=== PATIENT | male | born 1985 | race African-American/Black ===

== ENCOUNTER 2020-01-13 16:22 | Emergency (ER) | payer SELFPAY ==
[~2020-01-13] VITALS: Ht 188 cm; Wt 100.0 kg
[2020-01-13 16:36] VITALS: BP 131/80
--- NOTE | 2020-01-13 16:46 | PHYS DOC ---
Past History Past Medical History: No Pertinent History Past Surgical History: No Surgical History Smoking: Cigarettes Alcohol Use: Occasionally Drug Use: None General Adult EDM: Chief Complaint: NAUSEA/VOMITING/DIARRHEA HPI: HPI: Patient is a 34-year-old male who presents to the emergency department for evalu ation. He states that for the past 3 days he has had several episodes of nausea, vomiting, and diarrhea throughout the day. His emesis and stools have been nonbloody. His stool is mostly watery. He denies any significant pain, occluding any abdominal pain. He has not had any fever. He has felt generally fatigued and weak, sometimes lightheaded as well over the past few days. He has not had any recent travel or antibiotic use. There are no alleviating or exacerbating factors to his symptoms. Review of Systems: Review of Systems: Constitutional: Denies fever or chills Eyes: Denies change in visual acuity HENT: Denies nasal congestion or sore throat Respiratory: Denies cough or shortness of breath Cardiovascular: Denies chest pain or edema GI: As per HPI : Denies dysuria Musculoskeletal: Denies back pain or joint pain Integument: Denies rash Neurologic: Denies headache, focal weakness or sensory changes Endocrine: Denies polyuria or polydipsia Lymphatic: Denies swollen glands Psychiatric: Denies depression or anxiety Heart Score: Risk Factors: Risk Factors: DM, Current or recent (<one month) smoker, HTN, HLP, family history of CAD, obesity. Risk Scores: Score 0 - 3: 2.5% MACE over next 6 weeks - Discharge Home Score 4 - 6: 20.3% MACE over next 6 weeks - Admit for Clinical Observation Score 7 - 10: 72.7% MACE over next 6 weeks - Early Invasive Strategies Current Medications: Current Meds: Current Medications Medications (Trade) Dose Ordered Sig/Lisa Start Time Stop Time Status Last Admin Dose Admin Ondansetron HCl (Zofran) 4 mg 1X ONCE 01/13/20 16:45 01/13/20 16:46 UNV Sodium Chloride 1,000 ml @ 1,000 mls/hr Q1H 01/13/20 16:41 01/13/20 17:40 UNV Allergies: Allergies: Allergies Coded Allergies Type Severity Reaction Last Updated Verified No Known Drug Allergies 01/13/20 No Physical Exam: PE: PHYSICAL EXAM: CONSTITUTIONAL: Well developed, well nourished HEAD: normocephalic, atraumatic EENT: PERRL, EOMI. Conjunctivae normal color, sclerae non-icteric; moist mucous membranes. NECK: Supple, non-tender; no meningismus. LUNGS: Lungs CTA, breathing even and unlabored. Normal air movement. HEART: Regular rate and rhythm, no murmur CHEST: No deformity; non-tender ABDOMEN: The abdomen is soft, and non-tender, no masses or bruits. There is no abdominal tenderness to palpation. Bowel sounds are slightly increased, normal pitch. EXTREM: Normal ROM; no deformity, no calf tenderness. Normal pulses palpable in all extremities. There is no pedal edema. SKIN: No rash; no diaphoresis NEURO: Alert; normal speech and cognition; CN's grossly intact; strength grossly intact without focal deficit. BACK: No CVA TTP. Current Patient Data: Labs: Laboratory Tests Test 01/13/20 17:07 White Blood Count 4.2 x10^3/uL Red Blood Count 4.79 x10^6/uL Hemoglobin 14.9 g/dL Hematocrit 45.3 % Mean Corpuscular Volume 95 fL Mean Corpuscular Hemoglobin 31 pg Mean Corpuscular Hemoglobin Concent 33 g/dL Red Cell Distribution Width 13.2 % Platelet Count 233 x10^3/uL Neutrophils (%) (Auto) 64 % Lymphocytes (%) (Auto) 19 % Monocytes (%) (Auto) 13 % Eosinophils (%) (Auto) 4 % Basophils (%) (Auto) 1 % Neutrophils # (Auto) 2.7 x10^3uL Lymphocytes # (Auto) 0.8 x10^3/uL Monocytes # (Auto) 0.5 x10^3/uL Eosinophils # (Auto) 0.2 x10^3/uL Basophils # (Auto) 0.0 x10^3/uL Urine Collection Type Unknown Urine Color Straw Urine Clarity Clear Urine pH 6.5 Urine Specific [place] <=1.005 Urine Protein Neg Urine Glucose (UA) Neg mg/dL Urine Ketones (Stick) Neg mg/dL Urine Blood Neg Urine Nitrite Neg Urine Bilirubin Neg Urine Urobilinogen Dipstick 0.2 mg/dL Urine Leukocyte Esterase Neg Urine RBC 0 /HPF Urine WBC 0 /HPF Urine Squamous Epithelial Cells Few /LPF Urine Bacteria 0 /HPF Sodium Level 138 mmol/L Potassium Level 3.7 mmol/L Chloride Level 102 mmol/L Carbon Dioxide Level 31 mmol/L Anion Gap 5 Blood Urea Nitrogen 9 mg/dL Creatinine 1.6 mg/dL Estimated GFR (Cockcroft-Gault) 60.2 BUN/Creatinine Ratio 6 Glucose Level 73 mg/dL Calcium Level 8.6 mg/dL Total Bilirubin 0.5 mg/dL Aspartate Amino Transf (AST/SGOT) 39 U/L Alanine Aminotransferase (ALT/SGPT) 32 U/L Alkaline Phosphatase 69 U/L Total Protein 7.6 g/dL Albumin 3.7 g/dL Albumin/Globulin Ratio 0.9 Lipase 110 U/L Current Medications Medications (Trade) Dose Ordered Sig/Lisa Route PRN Reason Start Time Stop Time Status Last Admin Dose Admin Sodium Chloride 1,000 ml @ 1,000 mls/hr Q1H IV 01/13/20 17:00 01/13/20 17:59 01/13/20 17:05 Ondansetron HCl (Zofran) 4 mg 1X ONCE IVP 01/13/20 17:00 01/13/20 17:01 DC 01/13/20 17:00 Sodium Chloride 1,000 ml @ 1,000 mls/hr 1X ONCE IV 01/13/20 18:00 01/13/20 18:59 UNV Vital Signs: Vital Signs Date Time Temp Pulse Resp B/P (MAP) Pulse Ox O2 Delivery O2 Flow Rate FiO2 01/13/20 16:36 98.0 70 16 131/80 (97) 100 Room Air EKG: EKG: [] Radiology/Procedures: Radiology/Procedures: [] Course & Med Decision Making: Course & Med Decision Making Pertinent Labs studies reviewed. (See chart for details) [] 6:00 PM: The patient's condition remained stable he is feeling significantly better at this time. I discussed test results in detail with the patient including the mildly elevated creatinine, the need for close outpatient follow- up, and return precautions. he will be given a second liter of IV fluids prior to discharge. Dragon Disclaimer: Dragon Disclaimer: This electronic medical record was generated, in whole or in part, using a voice recognition dictation system. Departure Departure: Impression: Primary Impression: Nausea vomiting and diarrhea Disposition: HOME/RESIDENCE PRIOR TO ADM Condition: STABLE Patient Instructions: Viral Gastroenteritis Additional Instructions: Your kidney function, was noted to be slightly elevated today, with a creatinine of 1.6. It is important that you obtain close outpatient follow-up for further evaluation to ensure that you do not need further treatment, and to avoid the potential for long-term kidney failure. It is important that you make an appoint with your primary care provider in the next 1 to 2 weeks for further outpatient evaluation, And kidney function rechecked. Use Imodium as needed for diarrhea, and the prescribed nausea medicine as needed for nausea. Scripts Ondansetron (ONDANSETRON ODT) 4 Mg Tab.rapdis 1 TAB PO PRN Q6-8HRS for N/V, #15 TAB Prov: JOSELITO GIL MD 01/13/20 Justification of Admission: Justification of Admission: Justification of Admission Dx: N/A JOSELITO GIL MD Jan 13, 2020 16:46
[2020-01-13] MEDS ORDERED: ONDANSETRON PF 4 MG/2 ML VIAL. IVP ONE (17:00)
[2020-01-13] MEDS ORDERED: IV NORMAL SALINE 1,000ML 1,000 ML IV SCH (17:00)
[2020-01-13 17:30] LABS: BILIRUBIN,URINE NEG (NEG); CLARITY,URINE CLEAR; COLOR,URINE STRAW; GLUCOSE,URINE NEG (NEG)
[2020-01-13 17:31] LABS: NITRITE,URINE NEG (NEG); UROBILINOGEN,URINE 0.2 mg/dL (0.2 mg/dL)
[2020-01-13 17:32] LABS: BASO % 1 % (0-3); EOS # 0.2 x10^3/uL (0.0-0.7); EOS % 4 % (0-3); HEMATOCRIT 45.3 % (39.0-53.0); HEMOGLOBIN 14.9 g/dL (13.0-17.5); LYMPH # 0.8 x10^3/uL (1.0-4.8); LYMPH % 19 % (24-48); MEAN CORPUSCULAR HEMOGLOBIN 31 pg (25-35); MEAN CORPUSCULAR HGB CONC 33 g/dL (31-37); MEAN CORPUSCULAR VOLUME 95 fL (79-100); MONO # 0.5 x10^3/uL (0.0-1.1); MONO % 13 % (0-9); NEUT # 2.7 x10^3uL (1.8-7.7); NEUT % 64 % (31-73); PLATELET COUNT 233 x10^3/uL (140-400); RED BLOOD COUNT 4.79 x10^6/uL (4.30-5.70); RED CELL DISTRIBUTION WIDTH 13.2 % (11.5-14.5); WHITE BLOOD COUNT 4.2 x10^3/uL (4.0-11.0)
[2020-01-13 17:33] LABS: BACTERIA,URINE 0 /HPF (0-FEW); RBC,URINE 0 /HPF (0-2); SQUAMOUS EPITHELIAL CELL,UR FEW /LPF; WBC,URINE 0 /HPF (0-4)
[2020-01-13 17:34] LABS: CALCIUM 8.6 mg/dL (8.5-10.1); CREATININE 1.6 mg/dL (0.7-1.3); GFR 60.2; POTASSIUM 3.7 mmol/L (3.5-5.1)
[2020-01-13 17:42] LABS: ALBUMIN 3.7 g/dL (3.4-5.0); ALBUMIN/GLOBULIN RATIO 0.9 (1.0-1.7); TOTAL BILIRUBIN 0.5 mg/dL (0.2-1.0); TOTAL PROTEIN 7.6 g/dL (6.4-8.2)
[2020-01-13] MEDS ORDERED: IV NORMAL SALINE 1,000ML 1,000 ML IV ONE (18:00)
[2020-01-13] MEDS ORDERED: ONDA4TAB12 PO (18:02)
== END 2020-01-13 18:19 | disposition home or self-care (01) ==
LOC: ER 16:22
DX: R11.2 Nausea with vomiting, unspecified (principal); R19.7 Diarrhea, unspecified; R42 Dizziness and giddiness; F17.210 Nicotine dependence, cigarettes, uncomplicated
CPT/HCPCS: 36415; 80053; 81001; 83690; 85025; 96361; 96374; 99283; J2405; J7030